=== PATIENT | female | born 1945 | race Caucasian/White ===

== ENCOUNTER 2020-05-18 17:25 | Inpatient (IN) | payer MEDICARE ==
[~2020-05-18] VITALS: Ht 157.5 cm; Wt 46.5 kg
[2020-05-18 17:55] LABS: BASO % 0 % (0-3); EOS # 0.1 x10^3/uL (0.0-0.7); EOS % 0 % (0-3); HEMATOCRIT 37.9 % (36.0-47.0); HEMOGLOBIN 12.8 g/dL (12.0-15.5); LYMPH # 0.8 x10^3/uL (1.0-4.8); LYMPH % 5 % (24-48); MEAN CORPUSCULAR HEMOGLOBIN 33 pg (25-35); MEAN CORPUSCULAR HGB CONC 34 g/dL (31-37); MEAN CORPUSCULAR VOLUME 98 fL (79-100); MONO % 12 % (0-9); NEUT # 13.9 x10^3/uL (1.8-7.7); NEUT % 83 % (31-73); PLATELET COUNT 440 x10^3/uL (140-400); RED BLOOD COUNT 3.87 x10^6/uL (3.50-5.40); WHITE BLOOD COUNT 16.8 x10^3/uL (4.0-11.0)
[2020-05-18 18:06] LABS: CALCIUM 8.6 mg/dL (8.5-10.1); CREATININE 0.8 mg/dL (0.6-1.0); GFR 70.5; POTASSIUM 3.1 mmol/L (3.5-5.1)
[2020-05-18 18:13] LABS: ALBUMIN 3.2 g/dL (3.4-5.0); ALBUMIN/GLOBULIN RATIO 0.7 (1.0-1.7); TOTAL BILIRUBIN 0.3 mg/dL (0.2-1.0); TOTAL PROTEIN 7.7 g/dL (6.4-8.2)
[2020-05-18 18:15] LABS: % LYMPHS 5 % (24-48); % MONOS 10 % (0-10); % SEGS 85 % (35-66); PLT ESTIMATE INCREASED (ADEQUATE)
[2020-05-18] MEDS ORDERED: ONDANSETRON PF 4 MG/2 ML VIAL. IV PRN (18:15)
[2020-05-18] MEDS ORDERED: DEXAMETHASONE SOD PHOS 4 MG/ML VIAL IVP ONE (18:15)
[2020-05-18] MEDS ORDERED: MORPHINE SULFATE 2 MG/ML VIAL. IV PRN (18:15)
--- NOTE | 2020-05-18 18:20 | RAD ---
XR CHEST 1V Clinical History: Dyspnea Technique: AP view of the chest was obtained at 05/18/2020 6:01 PM. Comparison: 11:39 AM. Findings: The cardiomediastinal silhouette is normal. The pulmonary vasculature is normal. There is patchy opac ity in the lower lungs bilaterally. There is an old fracture of the distal right clavicle. Impression: Bilateral pulmonary infiltrates suggesting atypical pneumonia. Electronically signed by: Roosevelt Hawthorne III, MD (05/18/2020 6:18 PM) [facility]
[2020-05-18] MEDS ORDERED: DEXAMETHASONE SOD PHOS 20 MG/5 ML VIAL. IVP ONE (18:30)
[2020-05-18] MEDS ORDERED: IPRATRPIUM/ALBUTEROL 0.5/2.5MG 3 ML NEBU. NEB ONE (18:30)
--- NOTE | 2020-05-18 18:38 | PHYS DOC ---
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 Patient is a smoker times many years. Patient states over the last several mo nths she has had difficulty breathing progressively becoming worse. Patient states she has associated cough with sputum production. Patient shortness of breath is present at rest worst with exertion. Patient has been using family members albuterol nebulizer treatments with minimal improvement. Patient denies any associated fever or chills or chest pain. Review of Systems: Review of Systems: Constitutional: Denies fever or chills. [] Eyes: Denies change in visual acuity. [] HENT: Denies nasal congestion or sore throat. [] Respiratory: Positive cough positive shortness of breath Cardiovascular: Denies chest pain or edema. [] GI: Denies abdominal pain, nausea, vomiting, bloody stools or diarrhea. [] : Denies dysuria. [] Musculoskeletal: Denies back pain or joint pain. [] Integument: Denies rash. [] Neurologic: Denies headache, focal weakness or sensory changes. [] Endocrine: Denies polyuria or polydipsia. [] Lymphatic: Denies swollen glands. [] Psychiatric: Denies depression or anxiety. [] Heart Score: Risk Factors: Risk Factors: DM, Current or recent (<one month) smoker, HTN, HLP, family history of CAD, obesity. Risk Scores: Score 0 - 3: 2.5% MACE over next 6 weeks - Discharge Home Score 4 - 6: 20.3% MACE over next 6 weeks - Admit for Clinical Observation Score 7 - 10: 72.7% MACE over next 6 weeks - Early Invasive Strategies Current Medications: Current Medications Medications (Trade) Dose Ordered Sig/Albin Start Time Stop Time Status Last Admin Dose Admin Acetaminophen (Tylenol) 650 mg PRN Q4HRS PRN 05/18/20 18:15 05/19/20 18:14 Albuterol/ Ipratropium (Duoneb) 3 ml RTQID 05/19/20 08:00 05/19/20 08:01 Dexamethasone Sodium Phosphate (Decadron) 10 mg 1X ONCE 1/5/21 18:30 05/18/20 18:31 DC 05/18/20 18:31 10 MG Morphine Sulfate (Morphine Sulfate) 2 mg PRN Q2HR PRN 05/18/20 18:15 05/19/20 18:14 Ondansetron HCl (Zofran) 4 mg PRN Q8HRS PRN 05/18/20 18:15 05/19/20 18:14 Allergies: Allergies: Allergies Coded Allergies Type Severity Reaction Last Updated Verified codeine Allergy Intermediate UNKNOWN 05/18/20 Yes Physical Exam: PE: HENT: Normocephalic, atraumatic, bilateral external ears normal, oropharynx moist, no oral exudates, nose normal. [] Eyes: PERRLA, EOMI, conjunctiva normal, no discharge. [] Neck: Normal range of motion, no tenderness, supple, no stridor. [] Cardiovascular: Tachycardic Lungs & Thorax: Tachypneic decreased breath sounds bilateral Abdomen: Bowel sounds normal, soft, no tenderness, no masses, no pulsatile masses. [] Skin: Warm, dry, no erythema, no rash. [] Back: No tenderness, no CVA tenderness. [] Extremities: No tenderness, no cyanosis, no clubbing, ROM intact, no edema. [] Neurologic: Alert and oriented X 3, normal motor function, normal sensory function, no focal deficits noted. [] Psychologic: Affect normal, judgement normal, mood normal. [] Current Patient Data: Labs: Laboratory Tests Test 05/18/20 17:40 White Blood Count 16.8 x10^3/uL (4.0-11.0) H Red Blood Count 3.87 x10^6/uL (3.50-5.40) Hemoglobin 12.8 g/dL (12.0-15.5) Hematocrit 37.9 % (36.0-47.0) Mean Corpuscular Volume 98 fL (79-100) Mean Corpuscular Hemoglobin 33 pg (25-35) Mean Corpuscular Hemoglobin Concent 34 g/dL (31-37) Red Cell Distribution Width 12.0 % (11.5-14.5) Platelet Count 440 x10^3/uL (140-400) H Neutrophils (%) (Auto) 83 % (31-73) H Lymphocytes (%) (Auto) 5 % (24-48) L Monocytes (%) (Auto) 12 % (0-9) H Eosinophils (%) (Auto) 0 % (0-3) Basophils (%) (Auto) 0 % (0-3) Neutrophils # (Auto) 13.9 x10^3/uL (1.8-7.7) H Lymphocytes # (Auto) 0.8 x10^3/uL (1.0-4.8) L Monocytes # (Auto) 2.0 x10^3/uL (0.0-1.1) H Eosinophils # (Auto) 0.1 x10^3/uL (0.0-0.7) Basophils # (Auto) 0.0 x10^3/uL (0.0-0.2) Segmented Neutrophils % 85 % (35-66) H Lymphocytes % 5 % (24-48) L Monocytes % 10 % (0-10) Platelet Estimate Increased (ADEQUATE) Sodium Level 134 mmol/L (136-145) L Potassium Level 3.1 mmol/L (3.5-5.1) L Chloride Level 97 mmol/L (98-107) L Carbon Dioxide Level 26 mmol/L (21-32) Anion Gap 11 (6-14) Blood Urea Nitrogen 21 mg/dL (7-20) H Creatinine 0.8 mg/dL (0.6-1.0) Estimated GFR (Cockcroft-Gault) 70.5 BUN/Creatinine Ratio 26 (6-20) H Glucose Level 148 mg/dL (70-99) H Calcium Level 8.6 mg/dL (8.5-10.1) Total Bilirubin 0.3 mg/dL (0.2-1.0) Aspartate Amino Transferase (AST) 20 U/L (15-37) Alanine Aminotransferase (ALT) 24 U/L (14-59) Alkaline Phosphatase 137 U/L (46-116) H Troponin I Quantitative < 0.017 ng/mL (0.000-0.055) EM-Eqh-K-Type Natriuretic Peptide 502 pg/mL (0-124) H Total Protein 7.7 g/dL (6.4-8.2) Albumin 3.2 g/dL (3.4-5.0) L Albumin/Globulin Ratio 0.7 (1.0-1.7) L Laboratory Tests 05/18/20 17:40 Laboratory Tests 05/18/20 17:40 Vital Signs: Vital Signs Date Time Temp Pulse Resp B/P (MAP) Pulse Ox O2 Delivery O2 Flow Rate FiO2 05/18/20 18:30 96 Room Air 05/18/20 17:30 98.6 107 24 146/84 (104) 98.6 EKG: EKG: EKG performed at 1740 heart rate [address] elevation no ST depression no acute [place] Radiology/Procedures: Radiology/Procedures: [] Impression: Findings: The cardiomediastinal silhouette is normal. The pulmonary vasculature is normal. There is patchy opacity in the lower lungs bilaterally. There is an old fracture of the distal right clavicle. Impression: Bilateral pulmonary infiltrates suggesting atypical pneumonia. Electronically signed by: Roosevelt Hawthorne III, MD (05/18/2020 6:18 PM) [facility] Course & Med Decision Making: Course & Med Decision Making Pertinent Labs and Imaging studies reviewed. (See chart for details) []Patient was evaluated for chief complaint. Work-up consisted of laboratory analysis radiologic imaging and EKG. Results reviewed and discussed with patient. Treatment included 1 L normal saline, Decadron 10 mg, Rocephin and Zithromax and DuoNeb. Patient admitted to the hospitalist with pulmonology consult. [] Dragon Disclaimer: Dragon Disclaimer: This electronic medical record was generated, in whole or in part, using a voice recognition dictation system. Departure Departure Impression: Primary Impression: Dyspnea Additional Impressions: COPD (chronic obstructive pulmonary disease) Person under investigation for COVID-19 Disposition: ADMITTED INPT THIS HOSP Admitting Physician: CAMRYN Condition: STABLE Referrals: JAXON KEN MD (PCP) SAGAR RITCHIE DO May 18, 2020 18:38
[2020-05-18] MEDS ORDERED: cefTRIAXone IV Push 1 GM VIAL. IVP ONE (19:15)
[2020-05-18] MEDS ORDERED: AZITHRMYCN 500MG IVPB FOR OMNI 250 ML IV ONE (19:15)
[2020-05-18] MEDS ORDERED: IV NORMAL SALINE 1000ML BAG 1,000 ML IV ONE (19:15)
[2020-05-18 21:30] VITALS: BP 86/55
--- NOTE | 2020-05-18 21:30 | NUR ---
The patient, KAYLENE BINGHAM, 74 y/o, F admitted by GERARDO CLARK MD, was given written information regarding hospital policies, unit procedures and contact persons. Valuables were checked and left with her.
[2020-05-18 23:30] VITALS: BP 110/65
[2020-05-18] MEDS ORDERED: ALBUTEROL SULFATE 8GM INHALER. INH PRN (23:30)
[2020-05-19] MEDS: ACETAMINOPHEN 325 MG TABLET. PO PRN ×2 (00:11→12:05)
[2020-05-19] MEDS ORDERED: CARB100C4 PO (02:28)
[2020-05-19] MEDS ORDERED: ALBU2.5V5 NEB (02:28)
[2020-05-19] MEDS ORDERED: BUDE0.5A IH (02:28)
[2020-05-19] MEDS ORDERED: AMLO2.5T5 PO (02:28)
[2020-05-19] MEDS ORDERED: FLUT1AER11 IH (02:28)
[2020-05-19] MEDS ORDERED: ACET325T9 PO (02:28)
[2020-05-19 03:54] VITALS: BP 107/54
[2020-05-19 07:00] VITALS: BP 109/58
--- NOTE | 2020-05-19 07:02 | PDOC1 ---
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 She had quit smoking and recently restarted smoking 3 cigarettes per day and notes over the last several months her difficulty breathing progressively becoming worse. Patient states she has associated cough with sputum production. Patient has been using family members albuterol nebulizer treatments with minimal improvement. No nausea, vomiting. No diarrhea or dysuria. She is currently requiring oxygen at 2 liters. The patient states she has lost 12 pounds in the last 3 months. Patient denies any associated fever or chills or chest pain. EKG performed at 1740 heart rate [address] elevation no ST depression no acute [place] Chest radiograph with bilateral pulmonary infiltrates suggesting atypical pneumonia. labs with white cell count 16.8, hemoglobin 12.8, platelets 440. BUN 21, creatinine 0.8. Admitted for further care Past Medical History Cardiovascular: HTN Psych: Bipolar Family History Family History: Hypertension Social History Smoke: <1 pack per day ALCOHOL: rare Drugs: None Current Problem List Problem List Problems Medical Problems: (1) COPD (chronic obstructive pulmonary disease) Status: Acute (2) Dyspnea Status: Acute (3) Person under investigation for COVID-19 Status: Acute Current Medications Current Medications Current Medications Dexamethasone Sodium Phosphate (Decadron) 10 mg 1X ONCE IVP ; Start 05/18/20 at 18:15; Stop 05/18/20 at 18:16; Status Cancel Albuterol/ Ipratropium (Duoneb) 3 ml 1X ONCE NEB Last administered on 05/18/20at 18:29; Start 05/18/20 at 18:30; Stop 05/18/20 at 18:31; Status DC Ondansetron HCl (Zofran) 4 mg PRN Q8HRS PRN IV NAUSEA/VOMITING; Start 05/18/20 at 18:15; Stop 05/19/20 at 18:14 Morphine Sulfate (Morphine Sulfate) 2 mg PRN Q2HR PRN IV PAIN; Start 05/18/20 at 18:15; Stop 05/19/20 at 18:14 Acetaminophen (Tylenol) 650 mg PRN Q4HRS PRN PO FEVER > 100.3'F Last administered on 05/19/20at 00:11; Start 05/18/20 at 18:15; Stop 05/19/20 at 18:14 Albuterol/ Ipratropium (Duoneb) 3 ml RTQID NEB ; Start 05/19/20 at 08:00; Stop 05/18/20 at 23:20; Status DC Dexamethasone Sodium Phosphate (Decadron) 10 mg 1X ONCE IVP Last administered on 05/18/20at 18:31; Start 05/18/20 at 18:30; Stop 05/18/20 at 18:31; Status DC Ceftriaxone Sodium (Rocephin) 1 gm 1X ONCE IVP Last administered on 05/18/20at 19:43; Start 05/18/20 at 19:15; Stop 05/18/20 at 19:16; Status DC Azithromycin 250 ml @ 250 mls/hr 1X ONCE IV Last administered on 05/18/20at 19:44; Start 05/18/20 at 19:15; Stop 05/18/20 at 20:14; Status DC Sodium Chloride 1,000 ml @ 1,000 mls/hr 1X ONCE IV Last administered on 05/18/20at 19:43; Start 05/18/20 at 19:15; Stop 05/18/20 at 20:14; Status DC Albuterol Sulfate (Ventolin Hfa) 2 puff PRN Q4HRS PRN INH SHORTNESS OF BREATH; Start 05/18/20 at 23:30 Fluticasone/ Vilanterol (Breo Ellipta 100-25 Mcg) 1 puff DAILY INH ; Start 05/19/20 at 09:00 Active Scripts Active Reported Tylenol (Acetaminophen) 325 Mg Tablet 500 Mg PO Q6HRS Budesonide 0.5 Mg/2 Ml Ampul.neb 0.5 Mg IH Q4HRS W/A Albuterol Sulfate Neb Soln (Albuterol Sulfate) 2.5 Mg/3 Ml Vial.neb 1 Vial NEB PRN Q4HRS Airduo Digihaler 113-14 Mcg (Fluticasone Propion/Salmeterol) 1 Each Aer.pw.bas 1 Each IH BIDAFTMEAL PRN Carbamazepine 100 Mg Cpmp.12hr 200 Mg PO DAILY Amlodipine Besylate 2.5 Mg Tablet 2.5 Mg PO DAILY Allergies Allergies: Coded Allergies: codeine (Verified Allergy, Intermediate, UNKNOWN, 05/18/20) ROS General: YES: Fatigue, Malaise, Appetite; No: Chills, Night Sweats, Other PSYCHOLOGICAL ROS: YES: Anxiety; No: Behavioral Disorder, Concentration difficultie, Decreased libido, Depression, Disorientation, Hallucinations, Hostility, Irritablity, Memory difficulties, Mood Swings, Obsessive thoughts, Physical abuse, Sexual abuse, Sleep disturbances, Suicidal ideation, Other Eyes: No Blurry vision, No Decreased vision, No Double vision, No Dry eyes, No Excessive tearing, No Eye Pain, No Itchy Eyes, No Loss of vision, No Photophobia, No Scotomata, No Uses contacts, No Uses glasses, No Other HEENT: No: Heacaches, Visual Changes, Hearing change, Nasal congestion, Nasal discharge, Oral lesions, Sinus pain, Sore Throat, Epistaxis, Sneezing, Snoring, Tinnitus, Vertigo, Vocal changes, Other ALLERGY AND IMMUNOLOGY: No: Hives, Insect Bite Sensitivity, Itchy/Watery Eyes, Nasal Congestion, Post Nasal Drip, Seasonal Allergies, Other Hematological and Lymphatic: No: Bleeding Problems, Blood Clots, Blood Transfusions, Brusing, Night Sweats, Pallor, Swollen Lymph Nodes, Other ENDOCRINE: No: Breast Changes, Galactorrhea, Hair Pattern Changes, Hot Flashes, Malaise/lethargy, Mood Swings, Palpitations, Polydipsia/polyuria, Skin Changes, Temperature Intolerance, Unexpected Weight Changes, Other Breast: No New/Changing Breast Lumps, No Nipple changes, No Nipple discharge, No Other Respiratory: YES: Cough, Shortness of breath, SOB with excertion, Tachypnea, Wheezing; No: Hemoptysis, Orthopnea, Pleuritic Pain, Sputum Changes, Stridor, Other Cardiovascular: No Chest Pain, No Palpitations, No Orthopnea, No Paroxysmal Noc. Dyspnea, No Edema, No Lt Headedness, No Other Gastrointestinal: No Nausea, No Vomiting, No Abdominal Pain, No Diarrhea, No Constipation, No Melena, No Hematochezia, No Other Genitourinary: No Dysuria, No Frequency, No Incontinence, No Hematuria, No Retention, No Discharge, No Urgency, No Pain, No Flank Pain, No Other, No , No , No , No , No , No , No Musculoskeletal: No Gait Disturbance, No Joint Pain, No Joint Stiffness, No Joint Swelling, No Muscle Pain, No Muscular Weakness, No Pain In:, No Swelling In:, No Other Neurological: No Behavorial Changes, No Bowel/Bladder ControlChng, No Confusion, No Dizziness, No Gait Disturbance, No Headaches, No Impaired Coord/balance, No Memory Loss, No Numbness/Tingling, No Seizures, No Speech Problems, No Tremors, No Visual Changes, No Weakness, No Other Skin: No Dry Skin, No Eczema, No Hair Changes, No Lumps, No Mole Changes, No Mottling, No Nail Changes, No Pruritus, No Rash, No Skin Lesion Changes, No Other, No Acne Physical Exam General: Alert, Oriented X3, Cooperative, moderate distress HEENT: Atraumatic, PERRLA, EOMI, Mucous membr. moist/pink Lungs: Other (Diffuse wheezing bilaterally) Heart: S1S2, RRR, no thrills, no rubs, no gallops, no murmurs Abdomen: Normal bowel sounds, Soft, No tenderness, No hepatosplenomegaly, No masses Rectal Exam: not examined Extremities: No clubbing, No cyanosis, No edema, Normal pulses, No tenderness/swelling Skin: No rashes, No breakdown, No significant lesion Neuro: Normal gait, Normal speech, Strength at 5/5 X4 ext, Normal tone, Sensation intact, Cranial nerves 3-12 NL, Reflexes 2+ Psych/Mental Status: Mental status NL, Mood NL Vitals Vitals Vital Signs Date Time Temp Pulse Resp B/P (MAP) Pulse Ox O2 Delivery O2 Flow Rate FiO2 05/19/20 03:54 98.4 74 20 107/54 (71) 99 Nasal Cannula 2.0 98.4 Labs Labs Laboratory Tests Test 05/18/20 17:40 05/18/20 20:15 05/19/20 00:20 White Blood Count 16.8 x10^3/uL (4.0-11.0) Red Blood Count 3.87 x10^6/uL (3.50-5.40) Hemoglobin 12.8 g/dL (12.0-15.5) Hematocrit 37.9 % (36.0-47.0) Mean Corpuscular Volume 98 fL (79-100) Mean Corpuscular Hemoglobin 33 pg (25-35) Mean Corpuscular Hemoglobin Concent 34 g/dL (31-37) Red Cell Distribution Width 12.0 % (11.5-14.5) Platelet Count 440 x10^3/uL (140-400) Neutrophils (%) (Auto) 83 % (31-73) Lymphocytes (%) (Auto) 5 % (24-48) Monocytes (%) (Auto) 12 % (0-9) Eosinophils (%) (Auto) 0 % (0-3) Basophils (%) (Auto) 0 % (0-3) Neutrophils # (Auto) 13.9 x10^3/uL (1.8-7.7) Lymphocytes # (Auto) 0.8 x10^3/uL (1.0-4.8) Monocytes # (Auto) 2.0 x10^3/uL (0.0-1.1) Eosinophils # (Auto) 0.1 x10^3/uL (0.0-0.7) Basophils # (Auto) 0.0 x10^3/uL (0.0-0.2) Segmented Neutrophils % 85 % (35-66) Lymphocytes % 5 % (24-48) Monocytes % 10 % (0-10) Platelet Estimate Increased (ADEQUATE) Sodium Level 134 mmol/L (136-145) Potassium Level 3.1 mmol/L (3.5-5.1) Chloride Level 97 mmol/L (98-107) Carbon Dioxide Level 26 mmol/L (21-32) Anion Gap 11 (6-14) Blood Urea Nitrogen 21 mg/dL (7-20) Creatinine 0.8 mg/dL (0.6-1.0) Estimated GFR (Cockcroft-Gault) 70.5 BUN/Creatinine Ratio 26 (6-20) Glucose Level 148 mg/dL (70-99) Calcium Level 8.6 mg/dL (8.5-10.1) Total Bilirubin 0.3 mg/dL (0.2-1.0) Aspartate Amino Transf (AST/SGOT) 20 U/L (15-37) Alanine Aminotransferase (ALT/SGPT) 24 U/L (14-59) Alkaline Phosphatase 137 U/L (46-116) Troponin I Quantitative < 0.017 ng/mL (0.000-0.055) ZE-Tgd-Z-Type Natriuretic Peptide 502 pg/mL (0-124) Total Protein 7.7 g/dL (6.4-8.2) Albumin 3.2 g/dL (3.4-5.0) Albumin/Globulin Ratio 0.7 (1.0-1.7) Lactic Acid Level 3.7 mmol/L (0.4-2.0) 1.0 mmol/L (0.4-2.0) Laboratory Tests Test 05/18/20 17:40 05/18/20 20:15 05/19/20 00:20 White Blood Count 16.8 x10^3/uL (4.0-11.0) Red Blood Count 3.87 x10^6/uL (3.50-5.40) Hemoglobin 12.8 g/dL (12.0-15.5) Hematocrit 37.9 % (36.0-47.0) Mean Corpuscular Volume 98 fL (79-100) Mean Corpuscular Hemoglobin 33 pg (25-35) Mean Corpuscular Hemoglobin Concent 34 g/dL (31-37) Red Cell Distribution Width 12.0 % (11.5-14.5) Platelet Count 440 x10^3/uL (140-400) Neutrophils (%) (Auto) 83 % (31-73) Lymphocytes (%) (Auto) 5 % (24-48) Monocytes (%) (Auto) 12 % (0-9) Eosinophils (%) (Auto) 0 % (0-3) Basophils (%) (Auto) 0 % (0-3) Neutrophils # (Auto) 13.9 x10^3/uL (1.8-7.7) Lymphocytes # (Auto) 0.8 x10^3/uL (1.0-4.8) Monocytes # (Auto) 2.0 x10^3/uL (0.0-1.1) Eosinophils # (Auto) 0.1 x10^3/uL (0.0-0.7) Basophils # (Auto) 0.0 x10^3/uL (0.0-0.2) Segmented Neutrophils % 85 % (35-66) Lymphocytes % 5 % (24-48) Monocytes % 10 % (0-10) Platelet Estimate Increased (ADEQUATE) Sodium Level 134 mmol/L (136-145) Potassium Level 3.1 mmol/L (3.5-5.1) Chloride Level 97 mmol/L (98-107) Carbon Dioxide Level 26 mmol/L (21-32) Anion Gap 11 (6-14) Blood Urea Nitrogen 21 mg/dL (7-20) Creatinine 0.8 mg/dL (0.6-1.0) Estimated GFR (Cockcroft-Gault) 70.5 BUN/Creatinine Ratio 26 (6-20) Glucose Level 148 mg/dL (70-99) Calcium Level 8.6 mg/dL (8.5-10.1) Total Bilirubin 0.3 mg/dL (0.2-1.0) Aspartate Amino Transf (AST/SGOT) 20 U/L (15-37) Alanine Aminotransferase (ALT/SGPT) 24 U/L (14-59) Alkaline Phosphatase 137 U/L (46-116) Troponin I Quantitative < 0.017 ng/mL (0.000-0.055) UT-Ryi-A-Type Natriuretic Peptide 502 pg/mL (0-124) Total Protein 7.7 g/dL (6.4-8.2) Albumin 3.2 g/dL (3.4-5.0) Albumin/Globulin Ratio 0.7 (1.0-1.7) Lactic Acid Level 3.7 mmol/L (0.4-2.0) 1.0 mmol/L (0.4-2.0) Images Images Chest radiograph: The cardiomediastinal silhouette is normal. The pulmonary vasculature is normal. There is patchy opacity in the lower lungs bilaterally. There is an old fracture of the distal right clavicle. Impression: Bilateral pulmonary infiltrates suggesting atypical pneumonia. VTE Prophylaxis Ordered VTE Prophylaxis Devices: Yes VTE Pharmacological Prophylaxi: Yes Assessment/Plan Assessment/Plan A/P: Acute hypoxic respiratory failure - likely due to acute exacerbation of chronic obstructive pulmonary disease and likely developing pneumonia, high risk for l ikely gram negative Abnormal chest x-ray with suspected mass-like density in the left lung close to the pleura and also minimal infiltrate, right lower lobe Abnormal weight loss - 12 pounds in last 3 months and will need a CT chest. Smoker - needs lung cancer screening. Counseled on cessation Bipolar disorder - cont carbamazepine HTN - cont amlodipine FEN - general diet PPX - lovenox FULL CODE Dispo - inpatient Justifications for Admission Other Justification GERARDO CLARK MD May 19, 2020 07:02
[2020-05-19] MEDS ORDERED: IPRATRPIUM/ALBUTEROL 0.5/2.5MG 3 ML NEBU. NEB SCH (08:00)
[2020-05-19] MEDS: FLUTICASONE/VILANTEROL 100/25 INHALER. INH SCH (08:50)
[2020-05-19] MEDS ORDERED: DEXAMETHASONE SOD PHOS 4 MG/ML VIAL IVP ONE (09:00)
--- NOTE | 2020-05-19 09:21 | CONS ---
DATE OF CONSULTATION: PULMONARY CONSULTATION ATTENDING PHYSICIAN: Cory Salas MD REASON FOR CONSULTATION: Dyspnea, respiratory failure, abnormal chest x-ray. HISTORY OF PRESENT ILLNESS: The patient is a 74-year-old, who has smoked for 40 years and likely has severe COPD. She is not on home oxygen. She was seen at the office by my partner, Dr. Martin for worsening shortness of breath. She has been experiencing shortness of air for last 3 months. She denied any cough, chest pain, syncopal episode. No nausea, vomiting. No diarrhea or dysuria. She was noted to have an abnormal chest x-ray, which was reviewed by me. There is a mass-like infiltrate in the left lung. There is mild patchy infiltrate in the right lower lobe as well. She has been admitted for further evaluation. She is currently requiring oxygen at 2 liters. The patient states she has lost 12 pounds in the last 3 months. PAST MEDICAL HISTORY: COPD, suspect severe. PAST SURGICAL HISTORY: No recent surgery. ALLERGIES: CODEINE. MEDICATIONS: All reviewed as listed in the MRAD. REVIEW OF SYSTEMS: Twelve-point system obtained. Pertinent positives discussed in my history of present illness, otherwise noncontributory. All systems that were negative were reviewed as well. FAMILY HISTORY: Noncontributory to lungs. PHYSICAL EXAMINATION: VITAL SIGNS: Reviewed. Pulse ox 99% on 2 liters, afebrile. GENERAL: Visual exam done due to COVID suspicion. No obvious respiratory distress. EXTREMITIES: No leg edema. SKIN: No rash. LABORATORY DATA: Reviewed. White cell count 16.8, hemoglobin 12.8, platelets are 440. BUN 21, creatinine 0.8. IMPRESSION: 1. Acute hypoxic respiratory failure secondary to acute exacerbation of chronic obstructive pulmonary disease and possible early pneumonia. 2. Low suspicion for COVID-19. 3. Abnormal chest x-ray with suspected mass-like density in the left lung close to the pleura and also minimal infiltrate, right lower lobe. She has lost 12 pounds in last 3 months and possibility of left lung mass cannot be ruled out. We will need a CT chest. RECOMMENDATIONS: 1. Continue present oxygen to keep saturations 94 and above. 2. Add bronchodilators. 3. Noncontrast CT chest. 4. We will need a 6-minute walk test at the time of discharge. 5. We will need full pulmonary function test as an outpatient. 6. Further recommendations to follow after review of the CT chest. 7. Empiric antibiotics. 8. Discussed with RN. We will follow along with you. RADHA IYER MD DR: CLEMENTINA/juliano JOB#: [id number] / [id number]
[2020-05-19 10:22] LABS: BASO # 0.1 x10^3/uL (0.0-0.2); BASO % 0 % (0-3); EOS % 0 % (0-3); HEMATOCRIT 35.2 % (36.0-47.0); HEMOGLOBIN 11.5 g/dL (12.0-15.5); LYMPH # 1.7 x10^3/uL (1.0-4.8); LYMPH % 10 % (24-48); MEAN CORPUSCULAR HEMOGLOBIN 32 pg (25-35); MEAN CORPUSCULAR HGB CONC 33 g/dL (31-37); MEAN CORPUSCULAR VOLUME 98 fL (79-100); MONO # 1.6 x10^3/uL (0.0-1.1); MONO % 10 % (0-9); NEUT # 12.9 x10^3/uL (1.8-7.7); NEUT % 79 % (31-73); PLATELET COUNT 419 x10^3/uL (140-400); RED BLOOD COUNT 3.58 x10^6/uL (3.50-5.40); RED CELL DISTRIBUTION WIDTH 12.4 % (11.5-14.5); WHITE BLOOD COUNT 16.2 x10^3/uL (4.0-11.0)
[2020-05-19 10:36] LABS: CALCIUM 8.6 mg/dL (8.5-10.1); CREATININE 0.8 mg/dL (0.6-1.0); GFR 70.5; POTASSIUM 3.3 mmol/L (3.5-5.1)
[2020-05-19 11:00] VITALS: BP 144/61
[2020-05-19] MEDS: POLYETHYLENE GLYCOL 3350 17 GM PACKET. PO SCH (11:58)
[2020-05-19] MEDS ORDERED: SENNOSIDES/DOCUSATE 8.6/50MG TABLET. PO PRN (12:00)
[2020-05-19] MEDS ORDERED: POTASSIUM BICARB 20 MEQ EFFERVESCENT TABLET. PO ONE (12:00)
[2020-05-19 15:00] VITALS: BP 151/67
--- NOTE | 2020-05-19 16:49 | NUR ---
SW following for discharge planning. Spoke with RN and reviewed chart. Pt from home alone. Pt on IV Rocephin, 2l 02, COVID pending, regular diet. SW following.
--- NOTE | 2020-05-19 17:28 | EKG ---
[facility] [address] [place] [address] Test Date: 2020-05-18 Test Time: 17:40:39 Pat Name: KAYLENE BINGHAM Department: Room: Gender: F Legal Archivist: : 1945 Requested By: QUE RAO Order Number: [id number] Reading MD: Measurements Intervals Glide Rate: 103 P: 55 OH: 132 QRS: 30 QRSD: 100 T: 101 QT: 316 QTc: 416 Interpretive Statements SINUS TACHYCARDIA LEFT ATRIAL ABNORMALITY ST & T ABNORMALITY, CONSIDER HIGH LATERAL ISCHEMIA OR LEFT VENTRICULAR STRAIN ABNORMAL ECG RI6.02 No previous ECG available for comparison
[2020-05-19 19:00] VITALS: BP 97/53
[2020-05-19] MEDS ORDERED: cefTRIAXone IV Push 1 GM VIAL. IVP SCH (20:00)
[2020-05-19] MEDS ORDERED: PSYLLIUM HUSK (SUGAR FREE) 1 PKT PACKET PO SCH (21:00)
[2020-05-19] MEDS: LACTOBACILLUS RHAMNOSUS GG 1 CAPSULE. PO SCH (21:21)
[2020-05-19 23:00] VITALS: BP 100/56
[2020-05-20 03:00] VITALS: BP 100/81
[2020-05-20 07:52] VITALS: BP 135/55
[2020-05-20] MEDS: FLUTICASONE/VILANTEROL 100/25 INHALER. INH SCH (08:54)
[2020-05-20] MEDS: LACTOBACILLUS RHAMNOSUS GG 1 CAPSULE. PO SCH (08:54)
[2020-05-20] MEDS: POLYETHYLENE GLYCOL 3350 17 GM PACKET. PO SCH (08:55)
--- NOTE | 2020-05-20 09:24 | RAD ---
EXAM: Chest CT without intravenous contrast. HISTORY: Left lower lobe mass. TECHNIQUE: Computed tomographic images of the chest were obtained without contrast. Multiplanar refor matting was performed. *One or more of the following individualized dose reduction techniques were utilized for this examina tion: 1. Automated exposure control. 2. Adjustment of the mA and/or kV according to patient size. 3. Use of iterative reconstruction technique. COMPARISON: Chest radiograph dated 05/18/2020. FINDINGS: The heart is normal in size. There is a small pericardial effusion. There is calcified athe rosclerotic plaque involving the aorta and aortic great vessels. No pathologically enlarged mediastin al or hilar lymph node is seen. There is a trace left pleural effusion. There is no pneumothorax. There is partially consolidated right middle lobe and lingular infiltrate. There is additional inters titial infiltrate within the bilateral lower lobes superimposed on chronic interstitial changes. Ther e is superior medial left upper lobe infiltrate or pleural parenchymal scarring. There are few scatte red groundglass nodular opacities within the bilateral lower lobes and right upper lobe measuring up to 5 mm in size. There is a lap band device surrounding the gastric cardia. The gallbladder is surgically absent. Ther e is no acute finding involving the upper abdomen. There are degenerative changes throughout the spin e. There are multiple chronic appearing thoracic compression fractures. No acute fracture is seen. IMPRESSION: 1. Partially consolidated right middle lobe and lingular infiltrate superimposed on patchy interstiti al infiltrate within the bilateral upper and lower lobes. Follow-up to confirm resolution and exclude an underlying lesion. 2. Scattered groundglass opacities within both lungs measuring up to 5 mm in size. This is likely inf ectious or inflammatory. Attention the time of follow-up is recommended to exclude a persistent nodul e. 3. Trace left pleural effusion and small pericardial effusion. 4. Suspected left superior medial upper lobe infiltrate or scarring. Electronically signed by: Noemi Padron MD (05/20/2020 9:22 AM) [id number]
[2020-05-20 10:50] VITALS: BP 128/76
--- NOTE | 2020-05-20 11:33 | PDOC ---
[facility] PROGRESS NOTE Date of Service DOS: DATE: 05/20/20 TIME: 11:30 Chief Complaint Chief Complaint A/P: Acute hypoxic respiratory failure - likely due to acute exacerbation of chronic obstructive pulmonary disease and likely developing pneumonia, high risk for likely gram negative Right middle lobe pneumonia - improving on rocephin + doxy, likely gram negative given structural lung disease Abnormal weight loss - 12 pounds in last 3 months and will need a CT chest f/u after resolution of pneumonia Smoker - needs lung cancer screening. Counseled on cessation Bipolar disorder - cont carbamazepine HTN - cont amlodipine FEN - general diet PPX - lovenox FULL CODE Dispo - inpatient History of Present Illness History of Present Illness Ms Moody is a 74 year old female with bipolar disorder, HTN, 40 year smoking history and undiagnosed presumptive COPD who presented to ED from [facility] for admission due to shortness of breath. She had quit smoking and recently restarted smoking 3 cigarettes per day and notes over the last several months her difficulty breathing progressively becoming worse. Patient states she has associated cough with sputum production. Patient has been using family members albuterol nebulizer treatments with minimal improvement. No nausea, vomiting. No diarrhea or dysuria. She is currently requiring oxygen at 2 liters. The patient states she has lost 12 pounds in the last 3 months. Patient denies any associated fever or chills or chest pain. EKG performed at 1740 heart rate [address] elevation no ST depression no acute [place] Chest radiograph with bilateral pulmonary infiltrates suggesting atypical pneumonia. labs with white cell count 16.8, hemoglobin 12.8, platelets 440. BUN 21, creatinine 0.8. Admitted for further care CT chest with right middle lobe infiltrate consistent with pneumonia. Scattered groundglass opacities within both lungs measuring up to 5 mm in size. Still on O2, but she is feeling improved on antibiotics Vitals/I&O Vitals/I&O: Vital Signs Date Time Temp Pulse Resp B/P (MAP) Pulse Ox O2 Delivery O2 Flow Rate FiO2 05/20/20 10:50 97.4 79 22 128/76 (93) 93 Nasal Cannula 2.0 97.4 I & O 05/19/20 05/19/20 05/20/20 15:00 23:00 07:00 Intake Total 100 ml 240 ml Balance 100 ml 240 ml Physical Exam General: Alert, Oriented X3, Cooperative, moderate distress Abdomen: Normal bowel sounds, Soft, No tenderness, No hepatosplenomegaly, No masses Extremities: No clubbing, No cyanosis, No edema, Normal pulses, No tenderness/swelling Skin: No rashes, No breakdown, No significant lesion Assessment and Plan Assessmemt and Plan Problems Medical Problems: (1) COPD (chronic obstructive pulmonary disease) Status: Acute (2) Dyspnea Status: Acute (3) Person under investigation for COVID-19 Status: Acute Comment Review of Relevant I have reviewed the following items ramsey (where applicable) has been applied. Medications: Current Medications Medications (Trade) Dose Ordered Sig/Albin Route PRN Reason Start Time Stop Time Status Last Admin Dose Admin Ceftriaxone Sodium (Rocephin) 1 gm Q24H IVP 05/19/20 20:00 05/19/20 21:21 Potassium Bicarbonate (Potassium Effervescent Tablet) 40 meq 1X ONCE PO 05/19/20 12:00 05/19/20 12:01 DC 05/19/20 11:58 Psyllium Hydrophilic Mucilloid (Metamucil Fiber Packet) 1 pkt QHS PO 05/19/20 21:00 05/19/20 21:21 Polyethylene Glycol (miraLAX PACKET) 17 gm DAILY PO 05/19/20 12:00 05/20/20 08:55 Amlodipine Besylate (Norvasc) 2.5 mg DAILY PO 05/19/20 13:00 05/20/20 08:55 Carbamazepine (TEGretol XR) 200 mg DAILY PO 05/19/20 13:00 05/20/20 08:54 Olanzapine (ZyPREXA ZYDIS) 5 mg PRN BID PRN PO ANXIETY / AGITATION 05/19/20 12:15 05/19/20 21:21 Lactobacillus Rhamnosus (Culturelle) 1 cap BID PO 05/19/20 21:00 05/20/20 08:54 Justifications for Admission Other Justification GERARDO CLARK MD May 20, 2020 11:33
[2020-05-20] MEDS ORDERED: DOXYCYCLINE HYCLATE 100 MG in IV DEXTROSE 5% 100ML 100 ML IV ONE (12:00)
[2020-05-20] MEDS ORDERED: cefTRIAXone IV Push 1 GM VIAL. IVP SCH (12:00)
--- NOTE | 2020-05-20 14:43 | NUR ---
SW following for discharge planning. Spoke with RN and reviewed chart. Pt to discharge home today, 05/20 self-care. SW awaiting results of 6 min walk to determine home 02 needs. RT notified. SW following. Addendum: 05/20/20 at 1636 by MAYTE ALCALA SW 6 min walk results indicated need for home 02 setup. Pt stated no preference in provider so referral phoned and faxed to Uriel with [employer]. Patient choice of vendor form completed. SW confirmed orders were received. 02 tank provided to pt for transportation home. Pt to call the number on the tank once home to arrange for home 02 delivery. No further SW needs at this time.
[2020-05-20] MEDS ORDERED: DOXY100T PO (15:12)
[2020-05-20] MEDS ORDERED: PRED20TA PO (15:12)
[2020-05-20 15:20] VITALS: BP 145/76
--- NOTE | 2020-05-20 16:31 | PDOC3 ---
Discharge Summary Visit Information Date of Admission: May 18, 2020 Date of Discharge: May 20, 2020 Admitting Diagnosis: Acute respiratory failure with hypoxia Final Diagnosis Problems Medical Problems: (1) COPD (chronic obstructive pulmonary disease) Status: Acute (2) Dyspnea Status: Acute (3) Person under investigation for COVID-19 Status: Acute Brief Hospital Course Allergies Allergies Coded Allergies Type Severity Reaction Last Updated Verified codeine Allergy Intermediate UNKNOWN 05/18/20 Yes Vital Signs Vital Signs Date Time Temp Pulse Resp B/P (MAP) Pulse Ox O2 Delivery O2 Flow Rate FiO2 05/20/20 15:20 98.5 78 18 145/76 (99) 97 Nasal Cannula 2.0 98.5 Lab Results Laboratory Tests Test 05/18/20 17:40 05/18/20 18:29 05/18/20 20:15 05/19/20 00:20 White Blood Count 16.8 x10^3/uL (4.0-11.0) Red Blood Count 3.87 x10^6/uL (3.50-5.40) Hemoglobin 12.8 g/dL (12.0-15.5) Hematocrit 37.9 % (36.0-47.0) Mean Corpuscular Volume 98 fL (79-100) Mean Corpuscular Hemoglobin 33 pg (25-35) Mean Corpuscular Hemoglobin Concent 34 g/dL (31-37) Red Cell Distribution Width 12.0 % (11.5-14.5) Platelet Count 440 x10^3/uL (140-400) Neutrophils (%) (Auto) 83 % (31-73) Lymphocytes (%) (Auto) 5 % (24-48) Monocytes (%) (Auto) 12 % (0-9) Eosinophils (%) (Auto) 0 % (0-3) Basophils (%) (Auto) 0 % (0-3) Neutrophils # (Auto) 13.9 x10^3/uL (1.8-7.7) Lymphocytes # (Auto) 0.8 x10^3/uL (1.0-4.8) Monocytes # (Auto) 2.0 x10^3/uL (0.0-1.1) Eosinophils # (Auto) 0.1 x10^3/uL (0.0-0.7) Basophils # (Auto) 0.0 x10^3/uL (0.0-0.2) Segmented Neutrophils % 85 % (35-66) Lymphocytes % 5 % (24-48) Monocytes % 10 % (0-10) Platelet Estimate Increased (ADEQUATE) Sodium Level 134 mmol/L (136-145) Potassium Level 3.1 mmol/L (3.5-5.1) Chloride Level 97 mmol/L (98-107) Carbon Dioxide Level 26 mmol/L (21-32) Anion Gap 11 (6-14) Blood Urea Nitrogen 21 mg/dL (7-20) Creatinine 0.8 mg/dL (0.6-1.0) Estimated GFR (Cockcroft-Gault) 70.5 BUN/Creatinine Ratio 26 (6-20) Glucose Level 148 mg/dL (70-99) Calcium Level 8.6 mg/dL (8.5-10.1) Total Bilirubin 0.3 mg/dL (0.2-1.0) Aspartate Amino Transf (AST/SGOT) 20 U/L (15-37) Alanine Aminotransferase (ALT/SGPT) 24 U/L (14-59) Alkaline Phosphatase 137 U/L (46-116) Troponin I Quantitative < 0.017 ng/mL (0.000-0.055) AZ-Vrq-U-Type Natriuretic Peptide 502 pg/mL (0-124) Total Protein 7.7 g/dL (6.4-8.2) Albumin 3.2 g/dL (3.4-5.0) Albumin/Globulin Ratio 0.7 (1.0-1.7) Coronavirus (PCR) Not detected (Not Detected) Lactic Acid Level 3.7 mmol/L (0.4-2.0) 1.0 mmol/L (0.4-2.0) Test 05/19/20 09:21 White Blood Count 16.2 x10^3/uL (4.0-11.0) Red Blood Count 3.58 x10^6/uL (3.50-5.40) Hemoglobin 11.5 g/dL (12.0-15.5) Hematocrit 35.2 % (36.0-47.0) Mean Corpuscular Volume 98 fL (79-100) Mean Corpuscular Hemoglobin 32 pg (25-35) Mean Corpuscular Hemoglobin Concent 33 g/dL (31-37) Red Cell Distribution Width 12.4 % (11.5-14.5) Platelet Count 419 x10^3/uL (140-400) Neutrophils (%) (Auto) 79 % (31-73) Lymphocytes (%) (Auto) 10 % (24-48) Monocytes (%) (Auto) 10 % (0-9) Eosinophils (%) (Auto) 0 % (0-3) Basophils (%) (Auto) 0 % (0-3) Neutrophils # (Auto) 12.9 x10^3/uL (1.8-7.7) Lymphocytes # (Auto) 1.7 x10^3/uL (1.0-4.8) Monocytes # (Auto) 1.6 x10^3/uL (0.0-1.1) Eosinophils # (Auto) 0.0 x10^3/uL (0.0-0.7) Basophils # (Auto) 0.1 x10^3/uL (0.0-0.2) Sodium Level 137 mmol/L (136-145) Potassium Level 3.3 mmol/L (3.5-5.1) Chloride Level 102 mmol/L (98-107) Carbon Dioxide Level 29 mmol/L (21-32) Anion Gap 6 (6-14) Blood Urea Nitrogen 13 mg/dL (7-20) Creatinine 0.8 mg/dL (0.6-1.0) Estimated GFR (Cockcroft-Gault) 70.5 Glucose Level 100 mg/dL (70-99) Calcium Level 8.6 mg/dL (8.5-10.1) Magnesium Level 2.0 mg/dL (1.8-2.4) Brief Hospital Course Ms Moody is a 74 year old female with bipolar disorder, HTN, 40 year smoking history and undiagnosed presumptive COPD who presented to ED from [facility] for admission due to shortness of breath. She had quit smoking and recently restarted smoking 3 cigarettes per day and notes over the last several months her difficulty breathing progressively becoming worse. Patient states she has associated cough with sputum production. Patient has been using family members albuterol nebulizer treatments with minimal improvement. No nausea, vomiting. No diarrhea or dysuria. She is currently requiring oxygen at 2 liters. The patient states she has lost 12 pounds in the last 3 months. Patient denies any associated fever or chills or chest pain. EKG performed at 1740 heart rate [address] elevation no ST depression no acute MD Chest radiograph with bilateral pulmonary infiltrates suggesting atypical pneumonia. labs with white cell count 16.8, hemoglobin 12.8, platelets 440. BUN 21, creatinine 0.8. Admitted for further care CT chest with right middle lobe infiltrate consistent with pneumonia. Scattered groundglass opacities within both lungs measuring up to 5 mm in size. Still on O2, but she is feeling improved on antibiotics Consults: Pulmonology Problem list: Acute hypoxic respiratory failure - likely due to acute exacerbation of chronic obstructive pulmonary disease and likely developing pneumonia, high risk for likely gram negative. Needs home O2 4L on exertion. Has pulm f/u. Right middle lobe pneumonia - improving on rocephin + doxy, likely gram negative given structural lung disease. Doxycycline on d/c Abnormal weight loss - 12 pounds in last 3 months and will need a CT chest f/u after resolution of pneumonia Smoker - needs lung cancer screening. Counseled on cessation Bipolar disorder - cont carbamazepine HTN - cont amlodipine Greater than 30 minutes spent on d/c home Discharge Information Condition at Discharge: Improved Follow Up: Weeks (1) Disposition/Orders: D/C to Home Scheduled Acetaminophen (Tylenol) 325 Mg Tablet, 500 MG PO Q6HRS for Pain, (Reported) Entered as Reported by: ROGER GRIFFITHS on 05/19/20227 Last Action: New Order on 05/19/20227 by ROGER HER Albuterol Sulfate (Albuterol Sulfate Neb Soln) 2.5 Mg/3 Ml Vial.neb, 1 VIAL NEB PRN Q4HRS for athma, #50 (Reported) Entered as Reported by: ROGER GRIFFITHS on 05/19/20227 Last Action: New Order on 05/19/20227 by ROGER HER Amlodipine Besylate (Amlodipine Besylate) 2.5 Mg Tablet, 2.5 MG PO DAILY for HT N, (Reported) Entered as Reported by: ROGER GRIFFITHS on 05/19/20227 Last Action: Converted on 05/19/201205 by GERARDO CLARK MD Budesonide (Budesonide) 0.5 Mg/2 Ml Ampul.neb, 0.5 MG IH Q4HRS W/A for COPD, (R eported) Entered as Reported by: ROGER GRIFFITHS on 05/19/20227 Last Action: New Order on 05/19/20227 by ROGER HER Carbamazepine (Carbamazepine) 100 Mg Cpmp.12hr, 200 MG PO DAILY for bipolor disorder, (Reported) Entered as Reported by: ROGER GRIFFITHS on 05/19/20227 Last Action: Converted on 05/19/20 1206 by GERARDO CLARK MD Doxycycline Hyclate (Doxycycline Hyclate) 100 Mg Tablet, 100 MG PO BID for Pneumonia for 7 Days, #14 Prescribed by: GERARDO CLARK MD on 05/20/20 1512 Fluticasone Propion/Salmeterol (Airduo Digihaler 113-14 Mcg) 1 Each Aer.pw.bas, 1 EACH IH BIDAFTMEAL PRN for Asthma, (Reported) Entered as Reported by: ROGER GRIFFITHS on 05/19/20227 Last Action: New Order on 05/19/20227 by ROGER HER Prednisone (Prednisone) 20 Mg Tablet, 1 TAB PO DAILY for COPD for 5 Days, #5 Prescribed by: GERARDO CLARK MD on 05/20/20 1512 Justicifation of Admission Dx: Justifications for Admission: Justification of Admission Dx: Yes GERARDO CLARK MD May 20, 2020 16:31
--- NOTE | 2020-05-20 17:25 | NUR ---
Pt left unit at approx 1720 by wheelchair via private vehicle. Pt's IV removed without complication, VSS. Discharge paperwork discussed, additional questions addressed.
[2020-05-20] MEDS ORDERED: DOXYCYCLINE HYCLATE 100 MG TABLET PO SCH (21:00)
== END 2020-05-20 17:41 | disposition home or self-care (01) | DRG 871 ==
LOC: ER 17:25 → 6 SOUTH 18:21
PROVIDERS: ADMIT Internal Medicine; ATTEND Internal Medicine
DX: A41.9 Sepsis, unspecified organism (principal); J15.6 Pneumonia due to other Gram-negative bacteria; J96.01 Acute respiratory failure with hypoxia; J44.1 Chronic obstructive pulmonary disease with (acute) exacerbation; J44.0 Chronic obstructive pulmonary disease with (acute) lower respiratory infection; F17.210 Nicotine dependence, cigarettes, uncomplicated; F31.9 Bipolar disorder, unspecified; I10 Essential (primary) hypertension; Z20.822 Contact with and (suspected) exposure to COVID-19; Z82.49 Family history of ischemic heart disease and other diseases of the circulatory system
CPT/HCPCS: 36415; 71045; 71250; 80048; 80053; 83605; 83735; 83880; 84484; 85007; 85025; 87040; 93005; 94618; 96365; 96375; 99285; J0456; J0696; J1100; J3490; J7030; J7060; U0003; G0378

== ENCOUNTER → 2020-05-18 | Outpatient (CLI) | payer MEDICARE ==
[~2020-05-18] MED LIST: ACET325T9 PO; ALBU2.5V5 NEB; AMLO2.5T5 PO; BUDE0.5A IH; CARB100C4 PO; DOXY100T PO; FLUT1AER11 IH; PRED20TA PO
--- NOTE | 2020-05-18 12:09 | RAD ---
EXAM: Chest, 2 views. HISTORY: Shortness of breath. COMPARISON: None. FINDINGS: 2 views of chest are obtained. There is focal opacity within the lateral left upper lobe li shantal due to infiltrate. There is also right middle lobe and left infrahilar infiltrate or parenchymal scarring. This is superimposed on emphysema and chronic appearing interstitial changes. The heart is normal in size. There is a circular bandlike structure within the stomach and surgical clips within the upper abdomen. IMPRESSION: 1. Suspected lateral left upper lobe infiltrate. Follow-up to confirm resolution. There is also suspe cted right middle lobe and left infrahilar infiltrate or scarring. 2. Emphysema and chronic interstitial changes. Electronically signed by: Noemi Padron MD (05/18/2020 12:06 PM) [id number]
== END ==
LOC: RAD 11:17
PROVIDERS: ATTEND Internal Medicine Pulmonary Disease
DX: J43.9 Emphysema, unspecified (principal); R06.02 Shortness of breath
CPT/HCPCS: 71046